=== PATIENT | female | born 1985 | race Caucasian/White ===

== ENCOUNTER 2017-01-09 14:38 | Emergency (ER) | payer BC ==
[2017-01-09 14:50] VITALS: BP 139/70; PULSE 74; RESP 20; TEMP 98.1
--- NOTE | 2017-01-09 15:17 | ED ---
Recheck HPI - General Chief Complaint: Recheck/Abnormal Lab/Rx Stated Complaint: Poss [place] Palsy. Sent from [facility] Time Seen by Provider: 01/09/17 14:59 Source: patient, RN notes reviewed Mode of arrival: ambulatory Limitations: no limitations - History of Present Illness Initial Comments: 31-year-old female presents to the emergency department with a chief complaint of left-sided facial weakness and change in sensation. Patient states yesterday she also has lower lip was informed homicidal. Patient states today she woke up and she's had decreased sensation to the cheeks and the eyes and she noticed some weakness to her left eyebrow. Patient states she went to urgent care and they directly referred her here. Patient states she's never had this before. Patient denies any headache. Patient denies any traumas or injuries. Patient states that she is not currently having any other symptoms at this timePatient denies any recent fever, chills, shortness of breath, chest pain, back pain, abdominal pain, nausea vomiting, tingling, dysuria or hematuria , constipation or diarrhea, headaches or visual changes, or any other current symptoms. - Related Data Previous Rx's Medication Instructions Recorded predniSONE 40 mg PO BID 7 Days 01/09/17 Allergies Allergy/AdvReac Type Severity Reaction Status Date / Time No Known Allergies Allergy Verified 01/09/17 14:50 Review of Systems ROS Statement: Those systems with pertinent positive or pertinent negative responses have been documented in the HPI. ROS Other: All systems not noted in ROS Statement are negative. Past Medical History Past Medical History: No Reported History History of Any Multi-Drug Resistant Organisms: None Reported Past Surgical History: Tonsillectomy Past Psychological History: No Psychological Hx Reported Smoking Status: Never smoker Past Alcohol Use History: None Reported Past Drug Use History: None Reported General Exam Limitations: no limitations General appearance: alert, in no apparent distress Head exam: Present: atraumatic, normocephalic, normal inspection Eye exam: Present: PERRL, EOMI. Absent: normal appearance (Some drooping noticed to the left eye), scleral icterus, conjunctival injection, periorbital swelling ENT exam: Present: mucous membranes moist Neck exam: Present: normal inspection. Absent: tenderness, meningismus, lymphadenopathy Respiratory exam: Present: normal lung sounds bilaterally. Absent: respiratory distress, wheezes, rales, rhonchi, stridor Cardiovascular Exam: Present: regular rate, normal rhythm, normal heart sounds. Absent: systolic murmur, diastolic murmur, rubs, gallop, clicks Neurological exam: Present: alert, oriented X3, normal gait Expanded Patient oriented to: Present: person, place, time Speech: Present: fluid speech Cranial nerves: EOM's Intact: Normal, Gag Reflex: Normal, Tongue Deviation: Normal, Facial Sensation: Abnormal Left, Facial Palsy with Forehead Movement: Abnormal Left Cerebellar function: Finger to Nose: Normal, Heel to Olsen: Normal, Romberg: Normal Upper motor neuron: Jose Neglect: Normal, Pronator Drift: Normal Sensory exam: Upper Extremity Light Touch: Normal, Upper Extremity Pin Prick: Normal, Lower Extremity Light Touch: Normal, Lower Extremity Pin Prick: Normal Motor strength exam: RUE: 5, LUE: 5, RLE: 5, LLE: 5 DTR: Patellar (R): 2+, Patellar (L): 2+ Eye Response: (4) open spontaneously Motor Response: (6) obeys commands Verbal Response: (5) oriented Psychiatric exam: Present: normal affect, normal mood Skin exam: Present: warm, dry, intact, normal color. Absent: rash Course Vital Signs 01/09/17 14:47 Temperature 98.1 F Pulse Rate 74 Respiratory 20 Rate Blood Pressure 139/70 O2 Sat by Pulse 98 Oximetry Medical Decision Making - Medical Decision Making 31-year-old female presents with a history of [place]'s palsy. This and we'll start the steroids. We discussed using an eyedrop for home to help lubricate the eye. We did discuss follow-up and return parameters. We did give her neurology referral. Patient stated that she understood and she isn't tender in the plan. All questions have answered. She will be discharged. Disposition Clinical Impression: Paris's palsy Disposition: HOME SELF-CARE Condition: Stable Instructions: [place] Palsy (ED) Additional Instructions: Please use medication as discussed. Please follow up with family doctor if symptoms have not improved over the next two days. Please return to the emergency room if your symptoms increase or worsen or for any other concerns. Prescriptions: predniSONE 40 mg PO BID 7 Days Referrals: None,Stated [Primary Care Provider] - 1-2 days Claudia Shabazz MD [STAFF PHYSICIAN] - 1-2 days Time of Disposition: 15:17
== END 2017-01-09 15:25 | disposition home or self-care (01) ==
LOC: EC 14:38
DX: G51.0 Bell's palsy (principal)
CPT/HCPCS: 99284

== ENCOUNTER 2020-02-15 08:33 | Inpatient (IN) | payer BC ==
[2020-02-15] MEDS ORDERED: AMPICILLIN 2,000 MG in SODIUM CHLORIDE 0.9% 100 ML IVPB STA (09:00)
[2020-02-15] MEDS ORDERED: OXYTOCIN 30 UNITS/500 ML NS 30 UNIT in SALINE 1 500ML.BAG IV SCH (09:00)
[2020-02-15] MEDS ORDERED: METHYLERGONOVINE 0.2 MG/ML 1 ML AMP IM PRN (09:00)
[2020-02-15] MEDS ORDERED: CARBOPROST TROMETHAMINE 250 MCG/ML 1 ML AMP IM PRN (09:00)
[2020-02-15] MEDS ORDERED: OXYTOCIN 10 UNIT/ML 1 ML VIAL IM PRN (09:00)
[2020-02-15] MEDS ORDERED: TERBUTALINE 1 MG/ML VIAL SQ PRN (09:00)
[2020-02-15] MEDS ORDERED: LIDOCAINE 0.5% (PF) 5 MG/ML (50 ML SDV) SQ PRN (09:00)
--- NOTE | 2020-02-15 09:00 | P.HPOB ---
History of Present Illness H&P Date: 02/15/20 Chief Complaint: IUP @ 40 1/7 weeks, labor This is a 34-year-old 1 para 0 at 40 and 1/sevenths weeks with an estimated due date of 02/13. Patient presents with complaints of regular painful contractions that started around 1 AM. Patient denies loss of fluid or vaginal bleeding. Patient is noted good movement throughout. Patient has been receiving routine care with myself which has been essentially uncomplicated. Review of Systems Constitutional: Denies chills, Denies fatigue, Denies fever Ears, nose, mouth and throat: Denies headache Cardiovascular: Reports leg edema Gastrointestinal: Denies constipation, Denies diarrhea, Denies nausea, Denies vomiting Genitourinary: Reports Past Medical History Past Medical History: No Reported History History of Any Multi-Drug Resistant Organisms: None Reported Past Surgical History: Tonsillectomy Past Psychological History: No Psychological Hx Reported Smoking Status: Never smoker Past Alcohol Use History: None Reported Past Drug Use History: None Reported Medications and Allergies Home Medications Medication Instructions Recorded Confirmed Type Pnv No.95/Ferrous Fum/Folic AC 1 tab PO DAILY 02/15/20 02/15/20 History [ Multivitamin Tablet] Allergies Allergy/AdvReac Type Severity Reaction Status Date / Time No Known Allergies Allergy Verified 02/15/20 08:43 Exam Osteopathic Statement: *. No significant issues noted on an osteopathic structural exam other than those noted in the History and Physical/Consult. 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 On cervical exam she is 4-5/100/-2 station bulging bag of water was noted. Assessment and Plan (1) Term Current Visit: Yes Status: Acute Code(s): Z34.90 - ENCNTR FOR SUPRVSN OF NORMAL , UNSP, UNSP TRIMESTER SNOMED Code(s): 24258451 (2) Active labor Current Visit: Yes Status: Acute Code(s): AKD0156 - SNOMED Code(s): 243371239 Plan: Patient is admitted to labor and delivery for active labor. Patient is offered epidural for analgesia which she states she will be interested in. Anesthesia will be notified. Anticipate spontaneous vaginal delivery later today.
[2020-02-15] MEDS: LACTATED RINGERS 1,000 ML IV SCH ×3 (09:05→12:31)
[2020-02-15 09:45] LABS: Basophils % (A) 0 %; Eosinophils # (A) 0.1 k/uL (0-0.7); Eosinophils % (A) 1 %; HCT 34.1 % (34.0-46.0); HGB 11.6 gm/dL (11.4-16.0); Lymphocytes # (A) 1.5 k/uL (1.0-4.8); Lymphocytes % (A) 17 %; MCH 30.3 pg (25.0-35.0); MCV 89.3 fL (80.0-100.0); Mean Platelet Volume 8.6; Monocytes # (A) 0.3 k/uL (0-1.0); Monocytes % (A) 4 %; Neutrophils # (A) 6.6 k/uL (1.3-7.7); Neutrophils % (A) 77 %; Platelet Count 213 k/uL (150-450); RBC 3.81 m/uL (3.80-5.40); RDW 14.1 % (11.5-15.5); WBC 8.6 k/uL (3.8-10.6)
[2020-02-15] MEDS ORDERED: SODIUM CHLORIDE 0.9% 100 ML BAG ONE (10:00)
[2020-02-15] MEDS ORDERED: fentaNYL (PF) 50 MCG/ML 5 ML AMP ONE (10:00)
[2020-02-15] MEDS ORDERED: ROPIVACAINE 5MG/ML 20ML VIAL ONE (10:00)
[2020-02-15] MEDS: AMPICILLIN 1,000 MG in SODIUM CHLORIDE 0.9% 50 ML IVPB SCH ×3 (14:56→21:10)
[2020-02-15] MEDS: OXYTOCIN 20 UNITS/1000 ML NS 1,000 ML IV SCH ×2 (15:33→20:33)
[2020-02-15] MEDS ORDERED: ZOLPIDEM 5 MG TAB PO PRN (15:52)
[2020-02-15] MEDS ORDERED: SIMETHICONE 80 MG CHEWABLE PO PRN (15:52)
[2020-02-15] MEDS ORDERED: HYDROCORTISONE 2.5% RECTAL CREAM 30 GM TUBE RECTAL PRN (15:52)
[2020-02-15] MEDS ORDERED: diphenhydrAMINE 50 MG CAP PO PRN (15:52)
[2020-02-15] MEDS ORDERED: BENZOCAINE/MENTHOL SPRAY 1 GM/SPRAY AEROSOL TOPICAL PRN (15:52)
[2020-02-15] MEDS ORDERED: LANOLIN CREAM 5 GM TUBE TOPICAL PRN (15:52)
[2020-02-15] MEDS ORDERED: HYDROcodone/APAP 5-325MG 1 EACH TAB PO PRN (15:52)
[2020-02-15] MEDS ORDERED: WITCH HAZEL 1 EACH MED..PAD TOPICAL PRN (15:52)
[2020-02-15] MEDS ORDERED: diphenhydrAMINE 25 MG CAP PO PRN (15:52)
[2020-02-15] MEDS ORDERED: ACETAMINOPHEN TAB 325 MG TAB PO PRN (15:52)
[2020-02-15] MEDS ORDERED: diphenhydrAMINE 50 MG/ML 1 ML VIAL IVP PRN ×2 (15:52)
--- NOTE | 2020-02-15 15:57 | P.PROBDLV ---
Vaginal Delivery Note - . Vaginal Delivery Note: This is a pleasant 34-year-old 1 para 0 that presented to labor and delivery with complaints of regular painful contractions. Patient was noted to be 4-5 cm with a bulging bag of water. Patient was admitted to labor and delivery soon afterwards patient requested epidural placement anesthesia was notified and epidural was placed without difficulty. Patient underwent amniotomy and clear fluid was obtained. Patient was then noted to have significant spacing of her contractions therefore Pitocin augmentation of labor was begun. Patient progressed through labor eventually becoming complete she began pushing and had a normal spontaneous vaginal delivery of a viable female at 1527, weight of 7 lbs. 11 oz. with Apgars of 8 and 9 at one and 5 minutes respectively. After two-minute delayed the umbo cord was doubly clamped and cut and the placenta was delivered spontaneous intact with three-vessel cord being noted. The uterus was noted to be firm and below the umbilicus at this time. On inspection the patient's vaginal vault bilateral periurethral lacerations were noted and found to be hemostatic. A second-degree midline vaginal laceration was noted and this was repaired in the usual fashion with 3-0 Rapide. Prior to the repair lidocaine was instilled instilled into the laceration for anesthesia. A rectal exam was performed after repair was complete and found to be normal in nature. Estimated blood loss for this delivery 200 mL, all counts were noted to be correct 2 at the end of the delivery. patient and infant tolerated delivery well and are resting comfortably
[2020-02-15] MEDS: IBUPROFEN 600 MG TAB PO PRN (20:29)
[2020-02-15] MEDS: SENNOSIDES-DOCUSATE SODIUM 1 EACH TAB PO SCH (21:48)
--- NOTE | 2020-02-16 06:03 | P.DS ---
Providers Date of admission: 02/15/20 08:44 Expected date of discharge: 02/16/20 Attending physician: Laurence Mackey Primary care physician: Stated None - Discharge Diagnosis(es) (1) Term Current Visit: Yes Status: Acute (2) Active labor Current Visit: Yes Status: Acute (3) Status post vaginal delivery Current Visit: Yes Status: Acute (4) Obstetric vaginal laceration Current Visit: Yes Status: Acute Hospital Course: This is a pleasant 34-year-old 1 now para 1 that presented to labor and delivery yesterday morning 02/14 with complaints of regular painful contractions since 1 AM. Patient was noted to be dia every 4 minutes, on physical exam cervix is noted to be 4-5 cm. Patient had been receiving routine care with myself and was noted to be 40 weeks and 1 day. Patient was admitted to labor and delivery antibiotics were started for her group beta strep prophylaxis. Patient progressed through labor eventually becoming uncomfortable and requesting epidural placement epidural was placed by the anesthesia Department without difficulty. Patient underwent amniotomy clear fluid was obtained. Patient progressed to complete began pushing and had normal spontaneous vaginal delivery of a viable female weight of 7 lbs. 11 oz. with Apgars of 8 and 9 at one and 5 minutes respectively. Patient has done well . She is a bleeding and voiding without difficulty. Her lochia is moderate. She is breast-feeding. She states her pain is well-controlled and would like discharge home at 24 hours. Patient Condition at Discharge: Good Plan - Discharge Summary New Discharge Prescriptions: No Action Pnv No.95/Ferrous Fum/Folic AC [ Multivitamin Tablet] 1 tab PO DAILY Discharge Medication List Pnv No.95/Ferrous Fum/Folic AC [ Multivitamin Tablet] 1 tab PO DAILY 02/15/20 [History] Follow up Appointment(s)/Referral(s): Laurence Mackey DO [Doctor of Osteopathic Medicine] - 4 Weeks Patient Instructions/Handouts: Vaginal Delivery (DC), Vaginal Delivery (GEN) Discharge Disposition: HOME SELF-CARE
[2020-02-16] MEDS ORDERED: PRENATAL VIT-IRON-FOLIC ACID 1 EACH CAP PO SCH (09:00)
[2020-02-16] MEDS: IBUPROFEN 600 MG TAB PO PRN (09:25)
[2020-02-16] MEDS: SENNOSIDES-DOCUSATE SODIUM 1 EACH TAB PO SCH (09:27)
[2020-02-16 10:29] VITALS: RESP 14
[2020-02-16 13:40] VITALS: BP 104/67; PULSE 77; TEMP 97.9
== END 2020-02-16 16:39 | disposition home or self-care (01) | DRG 807 ==
LOC: FBPOP 08:33 → 4FBP 08:44
PROVIDERS: ADMIT Obstetrics & Gynecology Obstetrics; ATTEND Obstetrics & Gynecology Obstetrics
PROC: 10E0XZZ Delivery of Products of Conception, External Approach (ICD-10-PCS; principal; 2020-02-15)
PROC: 3E0R3BZ Introduction of Anesthetic Agent into Spinal Canal, Percutaneous Approach (ICD-10-PCS; principal; 2020-02-15)
PROC: 00HU33Z Insertion of Infusion Device into Spinal Canal, Percutaneous Approach (ICD-10-PCS; principal; 2020-02-15)
DX: O70.1 Second degree perineal laceration during delivery (principal); Z37.0 Single live birth; Z3A.40 40 weeks gestation of pregnancy; Z90.89 Acquired absence of other organs
CPT/HCPCS: 59025; 85025; 86850; 86900; 86901; 99213

== ENCOUNTER 2021-08-21 10:28 | Emergency (ER) | payer BC ==
--- NOTE | 2021-08-21 11:37 | ED ---
URI HPI - General Chief Complaint: Upper Respiratory Infection Stated Complaint: Covid+/BAM, 6wks preg Time Seen by Provider: 08/21/21 11:23 Source: patient, RN notes reviewed Mode of arrival: ambulatory Limitations: no limitations - History of Present Illness Initial Comments: Patient is a 36-year-old female that presents to the emergency department co mplaining of being Covid positive and having symptoms for the past 1-2 days. She notes she is approximately 6 weeks and would like to get monoclonal antibodies. She was otherwise well-appearing. She denied any other symptoms or complaints. She denied chest pain shortness of breath headache nausea vomiting diarrhea constipation fever fatigue chills. - Related Data Home Medications Medication Instructions Recorded Confirmed Pnv No.95/Ferrous Fum/Folic AC 1 tab PO DAILY 02/15/20 02/15/20 [ Multivitamin Tablet] Allergies Allergy/AdvReac Type Severity Reaction Status Date / Time No Known Allergies Allergy Verified 02/15/20 08:43 Review of Systems ROS Statement: Those systems with pertinent positive or pertinent negative responses have been documented in the HPI. ROS Other: All systems not noted in ROS Statement are negative. Past Medical History Past Medical History: No Reported History Additional Past Medical History / Comment(s): so [facility] 3 yrs ago History of Any Multi-Drug Resistant Organisms: None Reported Past Surgical History: Adenoidectomy, Tonsillectomy Past Anesthesia/Blood Transfusion Reactions: No Reported Reaction Past Psychological History: ADD/ADHD Smoking Status: Never smoker Past Alcohol Use History: None Reported Past Drug Use History: None Reported - Past Family History Mother Family Medical History: No Reported History General Exam Limitations: no limitations General appearance: alert, in no apparent distress Head exam: Present: atraumatic, normocephalic, normal inspection Eye exam: Present: normal appearance, PERRL, EOMI. Absent: scleral icterus, conjunctival injection, periorbital swelling ENT exam: Present: normal exam, mucous membranes moist Neck exam: Present: normal inspection Respiratory exam: Present: normal lung sounds bilaterally. Absent: respiratory distress, wheezes, rales, rhonchi, stridor Cardiovascular Exam: Present: regular rate, normal rhythm, normal heart sounds. Absent: systolic murmur, diastolic murmur, rubs, gallop, clicks GI/Abdominal exam: Present: soft, normal bowel sounds. Absent: distended, tenderness, guarding, rebound, rigid Extremities exam: Present: normal inspection, full ROM, normal capillary refill. Absent: tenderness, pedal edema, joint swelling, calf tenderness Neurological exam: Present: alert, oriented X3 Psychiatric exam: Present: normal affect, normal mood Skin exam: Present: warm, dry, intact, normal color. Absent: rash Course Vital Signs 08/21/21 11:11 Temperature 98.2 F Pulse Rate 99 Respiratory 19 Rate Blood Pressure 95/58 O2 Sat by Pulse 100 Oximetry Medical Decision Making - Medical Decision Making 36-year-old female Covid-positive for the past several days on it to undergo monoclonal antibody infusion. Patient did bring her Covid test with her a copy will be uploaded to her file. Patient does meet criteria for monoclonal antibodies She is agreeable to discharge home after. Case discussed with Dr. Ardon. Disposition Clinical Impression: COVID Disposition: HOME SELF-CARE Condition: Stable Instructions (If sedation given, give patient instructions): Coronavirus Disease 2019 (COVID-19) Additional Instructions: Please return to the Emergency Department if symptoms worsen or any other concerns. Is patient prescribed a controlled substance at d/c from ED?: No Referrals: None,Stated [Primary Care Provider] - 1-2 days Time of Disposition: 11:37
[2021-08-21] MEDS ORDERED: SODIUM CHLORIDE 0.9% 50 ML IVPB ONE (11:45)
[2021-08-21] MEDS ORDERED: BAMLANIVIMAB (EUA) 700 MG, ETESEVIMAB (EUA) 1,400 MG in SODIUM CHLORIDE 0.9% 50 ML IVPB ONE (11:45)
[2021-08-21 12:32] VITALS: RESP 16
[2021-08-21 14:00] VITALS: BP 102/64; PULSE 80; TEMP 98.3
== END 2021-08-21 14:00 | disposition home or self-care (01) ==
LOC: EC 10:28
DX: O98.511 Other viral diseases complicating pregnancy, first trimester (principal); U07.1 COVID-19; Z3A.01 Less than 8 weeks gestation of pregnancy
CPT/HCPCS: 99283; M0245

== ENCOUNTER 2021-10-17 09:59 | Emergency (ER) | payer BC ==
[2021-10-17 10:07] VITALS: RESP 18; TEMP 98.5
[2021-10-17] MEDS ORDERED: SODIUM CHLORIDE 0.9% 1,000 ML IV STA ×3 (11:36→15:38)
[2021-10-17] MEDS ORDERED: FAMOTIDINE 20 MG/2 ML VIAL IV STA (11:36)
[2021-10-17] MEDS ORDERED: ONDANSETRON 4 MG/2 ML VIAL IVP STA (11:36)
--- NOTE | 2021-10-17 11:40 | ED ---
General Adult HPI - General Chief complaint: Fall Stated complaint: 15wks preg/Fall/Vomiting Time Seen by Provider: 10/17/21 11:21 Source: patient, family, RN notes reviewed Mode of arrival: ambulatory Limitations: no limitations - History of Present Illness Initial comments: Patient is a pleasant 36-year-old female presenting to the emergency department with vomiting. Patient has been vomiting since last night, approximately 4 episodes. Patient may have had one episode of mild loose stools. Patient did have one episode when she was running to the bathroom when she fell. Patient did admission for teeth during this. Unclear if she may have passed out or not however patient did vomit. No abdominal pain. Patient is 15 weeks gravid. No pelvic pain. No vaginal bleeding. - Related Data Home Medications Medication Instructions Recorded Confirmed Pnv No.95/Ferrous Fum/Folic AC 1 tab PO DAILY 02/15/20 10/17/21 [ Multivitamin Tablet] Aspirin EC [Ecotrin Low Dose] 81 mg PO DAILY 10/17/21 10/17/21 Allergies Allergy/AdvReac Type Severity Reaction Status Date / Time No Known Allergies Allergy Verified 10/17/21 12:32 Review of Systems ROS Statement: Those systems with pertinent positive or pertinent negative responses have been documented in the HPI. ROS Other: All systems not noted in ROS Statement are negative. Constitutional: Denies: fever Eyes: Denies: eye pain ENT: Reports: dental pain. Denies: ear pain Respiratory: Denies: cough Cardiovascular: Denies: chest pain Endocrine: Denies: fatigue Gastrointestinal: Denies: abdominal pain Genitourinary: Denies: dysuria Musculoskeletal: Denies: back pain Skin: Denies: rash Neurological: Denies: weakness Past Medical History Past Medical History: No Reported History Additional Past Medical History / Comment(s): [place] 3 yrs ago History of Any Multi-Drug Resistant Organisms: None Reported Past Surgical History: Adenoidectomy, Tonsillectomy Past Anesthesia/Blood Transfusion Reactions: No Reported Reaction Past Psychological History: ADD/ADHD Smoking Status: Never smoker Past Alcohol Use History: None Reported Past Drug Use History: None Reported - Past Family History Mother Family Medical History: No Reported History General Exam Limitations: no limitations General appearance: alert, in no apparent distress Head exam: Present: atraumatic, normocephalic Eye exam: Present: normal appearance, PERRL, EOMI Expanded Teeth exam: Present: fractured tooth # (Patient does have partial fractures, up to 30% of the right central incisor, left central incisor, left lateral incisor, and left canine all upper.) Neck exam: Present: normal inspection. Absent: tenderness Respiratory exam: Present: normal lung sounds bilaterally Cardiovascular Exam: Present: regular rate, normal rhythm GI/Abdominal exam: Present: soft, distended (Mild fullness suprapubic region consistent with gravid history. Nontender.). Absent: tenderness, guarding, rebound, rigid, pulsatile mass Extremities exam: Present: normal inspection Neurological exam: Present: alert, oriented X3, CN II-XII intact. Absent: motor sensory deficit Psychiatric exam: Present: normal affect, normal mood Skin exam: Present: normal color Course Vital Signs 10/17/21 10:04 Temperature 98.5 F Pulse Rate 55 L Respiratory 18 Rate Blood Pressure 100/60 O2 Sat by Pulse 100 Oximetry - Reevaluation(s) Reevaluation #1: 10/17/21 11:40 Patient does have a dentist in the family and is going there after her visit today. Medical Decision Making - Medical Decision Making Patient reevaluated and resting comfortably in bed. Patient is feeling better and comfortable with discharge home. Patient does plan on going to the dentist. Patient and family updated. - Lab Data Result diagrams: 10/17/21 11:51 10/17/21 11:51 Lab Results 10/17/21 10/17/21 10/17/21 Range/Units 11:51 11:51 11:51 WBC 8.1 (3.8-10.6) k/uL RBC 4.37 (3.80-5.40) m/uL Hgb 13.6 (11.4-16.0) gm/dL Hct 39.4 (34.0-46.0) % MCV 90.1 (80.0-100.0) fL MCH 31.2 (25.0-35.0) pg MCHC 34.6 (31.0-37.0) g/dL RDW 14.1 (11.5-15.5) % Plt Count 191 (150-450) k/uL MPV 7.5 Neutrophils % 93 % Lymphocytes % 5 % Monocytes % 1 % Eosinophils % 1 % Basophils % 0 % Neutrophils # 7.5 (1.3-7.7) k/uL Lymphocytes # 0.4 L (1.0-4.8) k/uL Monocytes # 0.1 (0-1.0) k/uL Eosinophils # 0.1 (0-0.7) k/uL Basophils # 0.0 (0-0.2) k/uL PT 9.6 (9.0-12.0) sec INR 0.9 (<1.2) APTT 22.6 (22.0-30.0) sec Sodium 133 L (137-145) mmol/L Potassium 4.0 (3.5-5.1) mmol/L Chloride 105 (98-107) mmol/L Carbon Dioxide 21 L (22-30) mmol/L Anion Gap 7 mmol/L BUN 10 (7-17) mg/dL Creatinine 0.49 L (0.52-1.04) mg/dL Est GFR (CKD-EPI)AfAm >90 (>60 ml/min/1.73 sqM) Est GFR (CKD-EPI)NonAf >90 (>60 ml/min/1.73 sqM) Glucose 109 H (74-99) mg/dL Calcium 9.1 (8.4-10.2) mg/dL Total Bilirubin 0.8 (0.2-1.3) mg/dL AST 23 (14-36) U/L ALT 15 (4-34) U/L Alkaline Phosphatase 40 (38-126) U/L Total Protein 7.2 (6.3-8.2) g/dL Albumin 3.9 (3.5-5.0) g/dL Amylase 57 (30-110) U/L Lipase 46 (23-300) U/L HCG, Quant 72396.0 mIU/mL - Radiology Data Radiology results: report reviewed (IUP 16 weeks 2 days. Heart rate 149) Disposition Clinical Impression: Fall, Intrauterine , Dental injury, Vomiting Disposition: HOME SELF-CARE Condition: Stable Instructions (If sedation given, give patient instructions): Nausea and Vomiting in (ED) Additional Instructions: Please follow-up with primary care physician in the next day or 2 for recheck. Please do follow-up with your CARDIAC EXERCISE SPECIALIST in the next couple days for recheck also. Please follow-up with dentist today as planned. Return for not tolerating fluids, fevers, pelvic or abdominal pain, worsening or changing symptoms or other concerns. Is patient prescribed a controlled substance at d/c from ED?: No Referrals: Laurence Mackey DO [Primary Care Provider] - 1-2 days Ajit Flores MD [STAFF PHYSICIAN] - 1-2 days Time of Disposition: 13:22
[2021-10-17 11:58] LABS: Basophils % (A) 0 %; Eosinophils # (A) 0.1 k/uL (0-0.7); Eosinophils % (A) 1 %; HCT 39.4 % (34.0-46.0); HGB 13.6 gm/dL (11.4-16.0); Lymphocytes # (A) 0.4 k/uL (1.0-4.8); Lymphocytes % (A) 5 %; MCH 31.2 pg (25.0-35.0); MCHC 34.6 g/dL (31.0-37.0); MCV 90.1 fL (80.0-100.0); Mean Platelet Volume 7.5; Monocytes # (A) 0.1 k/uL (0-1.0); Monocytes % (A) 1 %; Neutrophils # (A) 7.5 k/uL (1.3-7.7); Neutrophils % (A) 93 %; Platelet Count 191 k/uL (150-450); RBC 4.37 m/uL (3.80-5.40); RDW 14.1 % (11.5-15.5); WBC 8.1 k/uL (3.8-10.6)
[2021-10-17 12:07] LABS: INR 0.9 (<1.2); Partial Thromboplastin Time 22.6 sec (22.0-30.0); Prothrombin Time 9.6 sec (9.0-12.0)
[2021-10-17 12:20] LABS: ALT 15 U/L (4-34); AST 23 U/L (14-36); African American GFR (CKD) >90 (>60 ml/min/1.73 sqM); Albumin 3.9 g/dL (3.5-5.0); Alkaline Phosphatase 40 U/L (38-126); Amylase 57 U/L (30-110); Anion Gap 7 mmol/L; Blood Urea Nitrogen 10 mg/dL (7-17); Calcium 9.1 mg/dL (8.4-10.2); Carbon Dioxide 21 mmol/L (22-30); Chloride 105 mmol/L (98-107); Glucose 109 mg/dL (74-99); Lipase 46 U/L (23-300); Non-African American GFR(CKD) >90 (>60 ml/min/1.73 sqM); Sodium 133 mmol/L (137-145); Total Bilirubin 0.8 mg/dL (0.2-1.3); Total Protein 7.2 g/dL (6.3-8.2)
--- NOTE | 2021-10-17 13:04 | US ---
EXAMINATION TYPE: US OB >= 14 wk fetus DATE OF EXAM: 10/17/2021 COMPARISON: None CLINICAL HISTORY: 15 weeks, fall, pt vomited all night and fell this am, has sore stomach, no bleedin g TECHNIQUE: OBTA GESTATIONAL AGE / DATING Physician Established: (15 weeks/4 days) EDC: 04/06/2022 Dates by LMP: LMP unknown Dates by First Scan: No previous this is first scan Dates by Current Scan: (16 weeks/2 days) EDC: 04/01/2022 SURVEY IUP: Single PLACENTA: Fundal PREVIA: No Previa ARDEN: 13.8 cm CERVICAL LENGTH (transabdominal: norm > 3.0cm): 3.0 cm BIOMETRY PRESENTATION: Variable BPD: 3.4 cm 16 weeks / 3 days HC: 12.1 cm 16 weeks / 0 days AC: 10.5 cm 16 weeks / 3 days FL: 2.0 cm 16 weeks / 0 days ESTIMATED WEIGHT IN GRAMS: 148.7 grams ESTIMATED WEIGHT IN LBS/OZ: 0 lbs. 5 oz. WEIGHT PERCENTAGE BASED ON ESTABLISHED DATES: 82% HC/AC: 1.1 Normal FL/AC: 19.1 Normal HEART RATE: 149 bpm RHYTHM: Renetta IMPRESSION: Single intrauterine gestation estimated at 16 weeks 2 days gestation based on current ultrasound samir urements. Cardiac activity measures 149 bpm.
[2021-10-17 16:28] VITALS: BP 102/84; PULSE 100
== END 2021-10-17 16:44 | disposition home or self-care (01) ==
LOC: EC 09:59
DX: O9A.212 Injury, poisoning and certain other consequences of external causes complicating pregnancy, second trimester (principal); S00.502A Unspecified superficial injury of oral cavity, initial encounter; O21.9 Vomiting of pregnancy, unspecified; Z3A.16 16 weeks gestation of pregnancy; W19.XXXA Unspecified fall, initial encounter
CPT/HCPCS: 36415; 80053; 82150; 83690; 85025; 85610; 85730; 84702; 76805; 99284; 96374; 96375; 96361 ×3; J2405

== ENCOUNTER → 2022-01-26 | Outpatient (CLI) | payer BC ==
--- NOTE | 2022-03-03 09:58 | HM ---
24 to monitor shows sinus mechanism heart rates ranged from 67-133 beats a minute or rigidity 7 beats a minute Nonsustained episodes of atrial tachycardia with negative P waves Recurrent nonsustained episodes of the same negatively oriented PVI morphology No sustained SVT Impression Nonsustained atrial tachycardia, recurrent MTDD
== END | disposition home or self-care (01) ==
LOC: RADECHMAIN 07:36
PROVIDERS: ATTEND Obstetrics & Gynecology Obstetrics
DX: I47.1 Supraventricular tachycardia (principal)
CPT/HCPCS: 93225; 93226

== ENCOUNTER 2022-03-30 06:03 | Inpatient (IN) | payer BC ==
[2022-03-30] MEDS ORDERED: METHYLERGONOVINE 0.2 MG/ML 1 ML AMP IM PRN (06:11)
[2022-03-30] MEDS ORDERED: LIDOCAINE 0.5% (PF) 5 MG/ML (50 ML SDV) SQ PRN (06:11)
[2022-03-30] MEDS ORDERED: OXYTOCIN 10 UNIT/ML 1 ML VIAL IM PRN (06:11)
[2022-03-30] MEDS ORDERED: CARBOPROST TROMETHAMINE 250 MCG/ML 1 ML AMP IM PRN (06:11)
[2022-03-30] MEDS ORDERED: TERBUTALINE 1 MG/ML VIAL SQ PRN (06:11)
[2022-03-30] MEDS ORDERED: OXYTOCIN 30 UNITS/500 ML NS 30 UNIT in SALINE 1 500ML.BAG IV SCH ×2 (06:15→14:30)
[2022-03-30] MEDS: LACTATED RINGERS 1,000 ML IV SCH ×3 (06:44→14:00)
[2022-03-30 07:17] LABS: Basophils % (A) 0 %; Eosinophils # (A) 0.1 k/uL (0-0.7); Eosinophils % (A) 1 %; HCT 36.2 % (34.0-46.0); HGB 11.9 gm/dL (11.4-16.0); Lymphocytes # (A) 1.7 k/uL (1.0-4.8); Lymphocytes % (A) 24 %; MCH 29.9 pg (25.0-35.0); MCHC 32.8 g/dL (31.0-37.0); MCV 91.1 fL (80.0-100.0); Mean Platelet Volume 8.3; Monocytes # (A) 0.3 k/uL (0-1.0); Monocytes % (A) 5 %; Neutrophils # (A) 4.9 k/uL (1.3-7.7); Neutrophils % (A) 69 %; Platelet Count 194 k/uL (150-450); RBC 3.97 m/uL (3.80-5.40); RDW 14.5 % (11.5-15.5); WBC 7.1 k/uL (3.8-10.6)
[2022-03-30] MEDS ORDERED: fentaNYL (PF) 50 MCG/ML 5 ML AMP ONE (10:37)
[2022-03-30] MEDS ORDERED: SODIUM CHLORIDE 0.9% 100 ML BAG ONE (10:37)
[2022-03-30] MEDS ORDERED: BUPIVACAINE (PF) 0.25% 30 ML VIAL ONE (10:37)
[2022-03-30] MEDS ORDERED: LANOLIN CREAM 5 GM TUBE TOPICAL PRN (14:23)
[2022-03-30] MEDS ORDERED: SIMETHICONE 80 MG CHEWABLE PO PRN (14:23)
[2022-03-30] MEDS ORDERED: ZOLPIDEM 5 MG TAB PO PRN (14:23)
[2022-03-30] MEDS ORDERED: diphenhydrAMINE 50 MG/ML 1 ML VIAL IVP PRN ×2 (14:23)
[2022-03-30] MEDS ORDERED: ACETAMINOPHEN TAB 325 MG TAB PO PRN (14:23)
[2022-03-30] MEDS ORDERED: diphenhydrAMINE 25 MG CAP PO PRN (14:23)
[2022-03-30] MEDS ORDERED: diphenhydrAMINE 50 MG CAP PO PRN (14:23)
[2022-03-30] MEDS ORDERED: BENZOCAINE/MENTHOL SPRAY 1 GM/SPRAY AEROSOL TOPICAL PRN (14:23)
[2022-03-30] MEDS ORDERED: HYDROCORTISONE 2.5% RECTAL CREAM 30 GM TUBE RECTAL PRN (14:23)
--- NOTE | 2022-03-30 14:41 | P.PROBDLV ---
Vaginal Delivery Note - . Vaginal Delivery Note: This is a 36-year-old 2 para 1 presented to labor and delivery this morning for scheduled induction of labor. She has had an essentially uncomplicated with the exception of significant nausea and vomitting. She did have 2 episodes of syncope during the 1 where she hit her upper lip on the toilet while rushing to vomit, she says really lost 2 of her front teeth during the process. Patient did have a COVID-19 infection during the . Patient has undergone testing which has been normal. Patient was admitted to labor and delivery and Pitocin induction of labor was begun. Patient underwent amniotomy and clear fluid was obtained. Patient progressed through labor eventually becoming uncomfortable and requesting epidural placement. Epidural was placed without difficulty by the anesthesia department. Patient progressed to 7 cm when she had noted sensation of increased nausea and was noted to have drooling stiffness and loss of consciousness. Patient was noted to be unresponsive for partially 1 minute with a lower blood pressure, hypertension noted. Patient did become responsive with no mental fogginess noted. Patient was then noted to be complete. Patient was placed in a modified lithotomy position and with excellent maternal effort had a normal spontaneous vaginal delivery of a viable female at 1339, weight of 614, Apgars of 8 and 9 at one and 5 minutes respectively. After two-minute delayed the umbo cord was doubly clamped and cut and the was handed to the maternal abdomen, spontaneous cry was noted. The placenta was delivered spontaneously intact with a three-vessel cord being noted. The uterus was noted to be firm and below the umbilicus. On inspection the patient's vaginal vault a first-degree vaginal laceration was appreciated and repaired in the usual fashion with 3-0 Rapide after instillation with lidocaine. The bladder was then drained for approximately 200 mL of clear yellow urine. Estimated blood loss 100 mL Patient and tolerated delivery well and are resting comfortably. Addendum: While patient was in the recovery. Patient had another episode of hypotension with loss of consciousness seconds in nature once again no mental fogginess was appreciated. Pulse was noted to be normal. The A team was called to evaluate patient. Please see consult note for recommendations.
--- NOTE | 2022-03-30 14:47 | P.HPOB ---
History of Present Illness H&P Date: 03/30/22 Chief Complaint: IUP @ 39 0/7 weeks This is a 36-year-old at 39-0/7 weeks that presents to labor and delivery for induction of labor. Patient has been receiving routine care. Patient did contract covid during the and has had testing since 32 weeks. Patient does note good movement denies vaginal bleeding or loss of fluid. She did have 2 episodes of syncope, though to be vasovagal as she noted nausea prior to episode of syncope. She stated she had feeling of nausea got up to portillo to the bathroom fell forward hitting the base of the toilet. Patient was taken to the emergency department at that time in addition. Patient had 1 other episode similar to this during the where she had loss of consciousness but her helped her to the ground. Otherwise patient has been well during the . Patient has undergone into needle testing secondary to above which has been normal, growth has been normal On bloodwork this patient is a blood type of A-, rubella status nonimmune, hep Angelique surface antigen negative, HIV negative, RPR is nonreactive, group beta strep cultures negative Review of Systems Constitutional: Denies chills, Denies fatigue, Denies fever Ears, nose, mouth and throat: Denies headache Cardiovascular: Reports edema Respiratory: Denies dyspnea Gastrointestinal: Denies constipation, Denies diarrhea, Denies nausea, Denies vomiting Genitourinary: Reports Past Medical History Past Medical History: No Reported History Additional Past Medical History / Comment(s): so peraza 3 yrs ago History of Any Multi-Drug Resistant Organisms: None Reported Past Surgical History: Adenoidectomy, Tonsillectomy Past Anesthesia/Blood Transfusion Reactions: No Reported Reaction Past Psychological History: ADD/ADHD Smoking Status: Never smoker Past Alcohol Use History: None Reported Past Drug Use History: None Reported - Past Family History Mother Family Medical History: No Reported History Medications and Allergies Home Medications Medication Instructions Recorded Confirmed Type Pnv No.95/Ferrous Fum/Folic AC 1 tab PO DAILY 02/15/20 03/30/22 History [ Multivitamin Tablet] Aspirin EC [Ecotrin Low Dose] 81 mg PO DAILY 10/17/21 03/30/22 History Allergies Allergy/AdvReac Type Severity Reaction Status Date / Time No Known Allergies Allergy Verified 03/30/22 06:09 Exam Osteopathic Statement: *. No significant issues noted on an osteopathic structural exam other than those noted in the History and Physical/Consult. 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 Patient is admitted to labor and delivery and Pitocin induction of labor is begun. Options for analgesia are discussed with patient including epidural and Stadol. Patient will consider. Anticipate spontaneous vaginal delivery later today.
--- NOTE | 2022-03-30 15:14 | P.CONS ---
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 She did have 2 episodes of loss of consciousness presented to the hospital. The initial one was during induction. She had low blood pressure, became unresponsive for approximately 1 minute. Afterwards she was a little bit foggy and had a hard time coming to. Nursing noted that she had frothing/drooling and increased tone with her arms in a flexed position. She then had an uneventful vaginal delivery. In the postdelivery. She again had an additional episode l asting less than 1 minute. It is difficult to determine whether she had loss of bladder control due to being post delivery. There are no signs of tongue biting. Nicki and her reports that she had 2 additional episodes during her somewhat depressed. One while she was in the bathroom and felt nauseated. She did fall and hit her face resulting in the loss of 2 teeth. She had one other additional episode where her helped her to the ground. She denies any history of prior seizures. She denies any history of prior syncopal episodes. She is unsure of her family history she was adopted. She does not believe from the information she had that there was a history of seizures, she does believe that there is a history of heart disease on her mother's side. Pertinent positives and negatives as discussed in HPI, a complete review of systems was performed and all other systems are negative. Vital signs reviewed General: nontoxic, no distress, appears at stated age Derm: warm, dry Head: atraumatic, normocephalic, symmetric Eyes: EOMI, no lid lag, anicteric sclera, pupils equal round reactive to light ENT: Nose and ears atraumatic, no thrush, no pharyngeal erythema Neck: No thyromegaly, no cervical lymphadenopathy, trachea midline, supple Mouth: no lip lesion, mucus membranes moist Cardiovascular: S1S2 reg, no murmur, positive posterior tibial pulse bilateral, no edema, capillary refill less than 2 seconds Lungs: clear to auscultation bilateral, no rhonchi, no rales, no wheeze, no accessory muscle use Abdominal: soft, nontender to palpation, no guarding, no appreciable organomegaly, normal bowel sounds Ext: no gross muscle atrophy, muscle strength muscle strength 5 out of 5 in bilateral upper extremities, plantar and dosing flexion intact bilateral and equal (appears appropriate due to epidural), Babinskis equivocal bilaterally likely secondary to epidural, no tongue biting. Neuro: CN II-XII grossly intact (Possible minimal tongue deviation to the left), light touch intact all 4 extremities, finger to nose within normal limits, Psych: Alert, oriented, appropriate affect Assessment/Plan: Unresponsive episode -Syncope versus less likely seizure -EKG- NSR at [address]-T wave changes, normal interval and normal axis. - check Echocardiogram -Once epidural has worn off patient will need orthostatic vital signs -Case discussed with neurology who will evaluate the patient today -Check CT head -Case discussed with Dr. Mackey - check electrolytes - prolactin level and lactic acid would not be useful in this situation due to recent vaginal delivery. Relative hypotension - appears improved at this time - s/p 3L of IV fluids Vaginal Delivery - being managed by [employer] WORKER Thank you for allowing us to participate in the care of this pleasant patient. Do not hesitate to contact us with questions. Someone can be reached from the [facility] hospitalist group all hours of the day at [phone] or via [employer]. Past Medical History Additional Past Medical History / Comment(s): bells clotildeey 3 yrs ago History of Any Multi-Drug Resistant Organisms: None Reported Past Surgical History: Adenoidectomy, Tonsillectomy Past Anesthesia/Blood Transfusion Reactions: No Reported Reaction Past Psychological History: ADD/ADHD Smoking Status: Never smoker Past Alcohol Use History: None Reported Past Drug Use History: None Reported - Past Family History Mother History Unknown: Yes Additional Family Medical History / Comment(s): adopted, thinks there may be a hx of heart disease Medications and Allergies Home Medications Medication Instructions Recorded Confirmed Type Pnv No.95/Ferrous Fum/Folic AC 1 tab PO DAILY 02/15/20 03/30/22 History [ Multivitamin Tablet] Aspirin EC [Ecotrin Low Dose] 81 mg PO DAILY 10/17/21 03/30/22 History Allergies Allergy/AdvReac Type Severity Reaction Status Date / Time No Known Allergies Allergy Verified 07/25/22 06:09 Physical Exam Osteopathic Statement: *. No significant issues noted on an osteopathic structural exam other than those noted in the History and Physical/Consult. Vitals: Vital Signs Temp Pulse Resp BP Pulse Ox 03/30/22 14:40 98 F 71 18 98/54 100 03/30/22 14:25 74 18 103/57 100 03/30/22 14:10 72 18 96/59 100 03/30/22 13:55 87 18 101/55 99 03/30/22 06:09 97 F L 82 18 113/67 97 Intake and Output 03/30/22 03/30/22 03/30/22 06:59 14:59 22:59 Output Total 100 Balance -100 Output: Estimated Blood Loss 100 Other: # Voids 1 Weight 88.451 kg Results CBC & Chem 7: 03/30/22 06:47
--- NOTE | 2022-03-30 15:43 | P.EN ---
A- team: Indication: episode of unresponsiveness Arrived on Scene to find: Patient awake and alert Patient had a vaginal delivery about 1 hour prior. She had an episode of unresponsivenss with drooling and spacitiy that lasted approximately. She again had a episode after delivery lasting less than 1 minutes. Unable to assess loss of bladder due to recent delivery. No tongue biting. No prolonged episode of confusion. She does have an aura of some nausea and just feeling off. Per patient and her she had 2 additional episodes during (see my consult for more details.) Vital signs reviewed General: nontoxic, no distress, appears at stated age Derm: warm, dry Head: atraumatic, normocephalic, symmetric Eyes: EOMI, no lid lag, anicteric sclera Mouth: no lip lesion, mucus membranes moist Cardiovascular: S1S2 reg, no murmur, positive posterior tibial pulse bilateral, Lungs: CTA bilateral, no rhonchi, no rales , no accessory muscle use Abdominal: soft, nontender to palpation, no guarding, no appreciable organomegaly Ext: no gross muscle atrophy, no edema, no contractures Neuro: CN II-XI grossly intact, muscles strength 5/5in b/l UE and intact plantar and dorisfelxion in both legs (appears appropraite for epidural) Psych: Alert, oriented, anxious and tearful Assessment/Plan: unresponisve episode - seizure vs syncope - ekg, echo - consult neuro, case discussed with Dr. Maurer - check CT Head - suspect more likely vasovagal suyncope as BP was 68/40 to 75/45 just prior to episode.Has received 2L of fluid and is getting one more liter now. - orthostatics once epidural worn off. Disposition: Patient to remain on FBP. Neuro consult placed A Total of 45 minutes of critical care time was spent on the complex care of this patient.
[2022-03-30 16:10] LABS: African American GFR (CKD) >90 (>60 ml/min/1.73 sqM); Anion Gap 4 mmol/L; Blood Urea Nitrogen 7 mg/dL (7-17); Calcium 8.4 mg/dL (8.4-10.2); Carbon Dioxide 22 mmol/L (22-30); Chloride 106 mmol/L (98-107); Glucose 73 mg/dL (74-99); Magnesium 1.5 mg/dL (1.6-2.3); Non-African American GFR(CKD) >90 (>60 ml/min/1.73 sqM); Potassium 3.9 mmol/L (3.5-5.1); Sodium 132 mmol/L (137-145)
[2022-03-30] MEDS: IBUPROFEN 600 MG TAB PO SCH ×3 (16:54→22:56)
--- NOTE | 2022-03-30 16:58 | CT ---
EXAMINATION TYPE: CT brain wo con CT DLP: 1126 mGycm, Automated exposure control for dose reduction was used. DATE OF EXAM: 03/30/2022 4:46 PM COMPARISON: None. CLINICAL INDICATION:Female, 36 years old with history of syncope vs seizure, syncope/seizure TECHNIQUE: Brain: Axial CT images of the brain were obtained with coronal and sagittal reformats created and rev iewed. Contrast used: None. Oral contrast used: None. FINDINGS: Brain: Extra-axial spaces: No abnormal extra-axial fluid collections. Ventricular system: Within normal limits Cerebral parenchyma: No acute intraparenchymal hemorrhage or mass effect. The horvath-white junction is well differentiated. Cerebellum: Unremarkable. Mass effect: No evidence of midline shift. Intracranial vasculature: unremarkable Soft tissues: Normal. Calvarium/osseous structures: No depressed skull fracture. Paranasal sinuses and mastoid air cells: Mild scattered paranasal sinus disease. Visualized orbits: Orbital contents are intact. IMPRESSION: No acute intracranial process.
--- NOTE | 2022-03-30 18:40 | P.CNNES ---
History of Present Illness Consult date: 03/30/22 Requesting physician: Kristie Chase Reason for Consult: Seizure versus syncope History of Present Illness: Patient is a 36-year-old female, who just delivered vaginally a healthy baby earlier today, had 2 syncopal spells versus seizure. Patient's nursing staff, and were both present as well. Apparently before delivery of the baby, patient was feeling nauseous, she became hypotensive, and felt will throw up and then felt will pass out. She then became unresponsive for about 1 minute, was foaming from the mouth, with slight rigidity in the arms. She was unaware when she came to. Apparently it was felt to be related to her delivery. After the baby was born earlier today, patient had another syncopal spell, which lasted less than 1 minute before she was back to her baseline. She felt it coming on, felt nauseous like will vomit, and then passed out. She did not bite her tongue. Any loss of urine control could not be assessed because of recent delivery. Her blood pressure documented was between 68/40 to 75/45. Patient's mentions that patient had 2 other syncopal spells during pre gnancy. The first one occurred in September 2021 when she felt she was having a stomach flu, was having some fever, nausea, felt will throw up. She was running to the bathroom, and she fell, and chipped one of her tooth from the fall. Another time during , about 6 months ago, she woke up from choking, was laying in the bed, and noticed that she had vomited all over on her self. Patient has history of syncopal spells when she was very young, when she would see her own blood drawn. Patient denies any history of tobacco use, alcohol. Drinks one cup of coffee, denies any excessive soda. She was adopted, therefore no family history available. No personal history of seizures. Review of Systems All 14 points of uses reviewed, unremarkable except as mentioned in HPI. She has some related symptoms from recent childbirth. Patient denies any headache. No visual symptoms. Past Medical History Past Medical History: No Reported History Additional Past Medical History / Comment(s): so peraza 3 yrs ago History of Any Multi-Drug Resistant Organisms: None Reported Past Surgical History: Adenoidectomy, Tonsillectomy Past Anesthesia/Blood Transfusion Reactions: No Reported Reaction Past Psychological History: ADD/ADHD Smoking Status: Never smoker Past Alcohol Use History: None Reported Past Drug Use History: None Reported - Past Family History Mother Family Medical History: No Reported History Medications and Allergies Home Medications Medication Instructions Recorded Confirmed Type Pnv No.95/Ferrous Fum/Folic AC 1 tab PO DAILY 02/15/20 03/30/22 History [ Multivitamin Tablet] Aspirin EC [Ecotrin Low Dose] 81 mg PO DAILY 10/17/21 03/30/22 History Allergies Allergy/AdvReac Type Severity Reaction Status Date / Time No Known Allergies Allergy Verified 03/30/22 06:09 Physical Examination - Vital Signs Vital Signs: Vital Signs Temp Pulse Resp BP Pulse Ox 03/30/22 13:55 87 18 101/55 99 03/30/22 06:09 97 F L 82 18 113/67 97 Intake and Output 03/29/22 03/30/22 03/30/22 22:59 06:59 14:59 Output Total 100 Balance -100 Output: Estimated Blood Loss 100 Other: # Voids 1 Weight 88.451 kg Patient is a young female, very pleasant, in no acute distress. Patient is alert awake oriented to time place and person. Speech and language functions are normal. No aphasia or dysarthria. Attention, concentration and fund of knowledge is adequate. On cranial examination, pupils are round and reacting to light, visual kulkarni are full on confrontation, with no neglect on double simultaneous stimulation. Her extraocular muscles are intact with no nystagmus. Face is symmetric, tongue protrudes to the midline. Palatal elevation and sensation normal, hearing and shoulder shrug normal, facial sensation normal. Shoulder shrug normal. On muscle strength testing, there is no pronator drift and the strength is normal in arms and legs distally and proximally. Deep tendon reflexes are 1+ to 2+, symmetric and plantars downgoing bilaterally. Sensory to touch is equal with no neglect. Cerebellar function showed no ataxia for [id number]-ptbs testing. No dysdiadochokinesia. Tone and bulk of muscles normal. Gait deferred. On general examination, there is no carotid bruit or murmur, S1-S2 audible. Abdomen is soft nontender. No organomegaly, bowel sounds present. Chest is clear. Peripheral pulses are present. No edema. Results - Laboratory Findings CBC and BMP: 03/30/22 06:47 03/30/22 15:22 Assessment and Plan Assessment: * Probable convulsive syncope 2 (before delivery and then ). Patient's blood pressure was significantly low, which probably resulted in syncopal spells x2. However patient had 2 other syncopal spells during , which also felt syncopal. Seizures less likely. * History of syncopal or near syncopal spells as a child related to seeing her own blood draws. Plan: * Agree with checking 2-D echo, TSH. * We will check EEG to rule out any epileptiform activity. * CT head will be done to rule out any intracranial process. * Orthostatics once patient fully hydrated. If these syncopal spells persist, then may need tilt table test. * Neurology will follow. * Discussed with Dr. Chase in detail. Thank you for the consult.
[2022-03-30] MEDS: SENNOSIDES-DOCUSATE SODIUM 1 EACH TAB PO SCH (20:21)
[2022-03-31 06:43] LABS: Basophils % (A) 0 %; Eosinophils # (A) 0.1 k/uL (0-0.7); Eosinophils % (A) 1 %; HCT 33.2 % (34.0-46.0); HGB 11.1 gm/dL (11.4-16.0); Lymphocytes # (A) 1.5 k/uL (1.0-4.8); Lymphocytes % (A) 21 %; MCH 30.5 pg (25.0-35.0); MCHC 33.5 g/dL (31.0-37.0); MCV 91.1 fL (80.0-100.0); Mean Platelet Volume 8.2; Monocytes # (A) 0.3 k/uL (0-1.0); Monocytes % (A) 4 %; Neutrophils # (A) 5.1 k/uL (1.3-7.7); Neutrophils % (A) 72 %; Platelet Count 166 k/uL (150-450); RBC 3.65 m/uL (3.80-5.40); RDW 14.7 % (11.5-15.5); WBC 7.1 k/uL (3.8-10.6)
--- NOTE | 2022-03-31 07:29 | CA ---
Transthoracic Echo Report Name: Nicki Neumann Age: 36 Gender: F : 1985 Exam Date: 03/30/2022 15:21 Exam Location: [facility] Ht (in): 65 Wt (lb): 195 Ordering Physician: Kristie Odonnell DO Attending/Referring Phys: [id number], [employer] Clerk Naty Monroe RDCS Procedure CPT: Indications: Syncope Cardiac Hx: Technical Quality: Good Contrast 1: Total Dose (mL): Contrast 2: Total Dose (mL): MEASUREMENTS (Male / Female) Normal Values 2D ECHO LV Diastolic Diameter PLAX 4.6 cm 4.2 - 5.9 / 3.9 - 5.3 cm LV Systolic Diameter PLAX 2.9 cm IVS Diastolic Thickness 1.0 cm 0.6 - 1.0 / 0.6 - 0.9 cm LVPW Diastolic Thickness 1.1 cm 0.6 - 1.0 / 0.6 - 0.9 cm LV Relative Wall Thickness 0.5 RV Internal Dim ED PLAX 3.1 cm LA Systolic Diameter LX 3.1 cm 3.0 - 4.0 / 2.7 - 3.8 cm LA Volume 47.8 cm??? 18 - 58 / 22 - 52 cm??? M-MODE Aortic Root Diameter MM 2.5 cm MV E Point Septal Separation 0.6 cm AV Cusp Separation MM 1.9 cm DOPPLER AV Peak Velocity 156.9 cm/s AV Peak Gradient 9.8 mmHg MV Area PHT 3.0 cm??? Mitral E Point Velocity 95.5 cm/s Mitral A Point Velocity 71.3 cm/s Mitral E to A Ratio 1.3 MV Deceleration Time 249.4 ms MV E' Velocity 12.0 cm/s Mitral E to MV E' Ratio 8.0 TR Peak Velocity 240.5 cm/s TR Peak Gradient 23.1 mmHg Right Ventricular Systolic Press 27.7 mmHg FINDINGS Left Ventricle Left ventricular ejection fraction is estimated at 55-60 %. Left ventricular cavity size normal. Left ventricular wall thickness normal. Right Ventricle Normal right ventricular size and function. Right ventricular systolic pressure within normal limits. Right Atrium Normal right atrial size. Left Atrium Normal left atrial size. No evidence for an atrial septal defect. Mitral Valve Structurally normal mitral valve. No mitral stenosis, regurgitation or prolapse. Aortic Valve Trileaflet aortic valve. No aortic stenosis. Tricuspid Valve Mild tricuspid regurgitation. Pulmonic Valve Trace pulmonic regurgitation. Pericardium Normal pericardium. No pericardial effusion. Aorta Normal size aortic root and proximal ascending aorta. CONCLUSIONS Normal LV size and systolic function. No significant abnormality on the Doppler exam. No pericardial effusion Previewed by: Dr. Triston Nicholas MD (Electronically Signed) Final Date: 31 March 2022 07:28
[2022-03-31] MEDS: IBUPROFEN 600 MG TAB PO SCH ×3 (07:44→22:06)
[2022-03-31] MEDS: SENNOSIDES-DOCUSATE SODIUM 1 EACH TAB PO SCH ×2 (07:44→19:43)
--- NOTE | 2022-03-31 12:34 | P.PNOBGVD ---
Subjective - Subjective Principal diagnosis: day #1 Interval history: Patient is doing well . No further syncopal episodes were appreciated. Appreciate neurology and internal medicine consult on chart. Patient states her lochia is moderate. She is feeling well today. Patient reports: Reports appetite normal, Reports voiding normally, Reports pain well controlled, Reports ambulating normally [place]: doing well Objective - Latest Vital Signs Latest vital signs: Vital Signs Temp Pulse Pulse Resp BP Pulse Ox 03/31/22 07:54 98.7 F 77 16 128/82 99 03/31/22 00:00 98.5 F 76 16 94/55 03/30/22 20:02 71 16 105/63 03/30/22 20:01 89 16 103/65 03/30/22 20:00 98.3 F 89 16 103/65 03/30/22 18:48 91 18 114/71 03/30/22 17:54 105 H 18 113/54 03/30/22 16:00 98 F 65 18 111/66 99 03/30/22 15:55 98 F 70 18 113/63 98 03/30/22 15:25 81 18 110/61 100 03/30/22 14:55 76 18 101/62 100 03/30/22 14:40 98 F 71 18 98/54 100 03/30/22 14:25 74 18 103/57 100 03/30/22 14:10 72 18 96/59 100 03/30/22 13:55 87 18 101/55 99 Intake and Output 03/30/22 03/31/22 03/31/22 22:59 06:59 14:59 Output Total 189 Balance -189 Output: Output, Quantitative 189 Blood Loss Other: # Voids 1 1 - Exam Extremities: Present: normal, edema Abdomen: Present: normal appearance, soft Uterus: Present: normal, firm - Labs Labs: Abnormal Lab Results - Last 24 Hours (Table) 03/30/22 03/31/22 Range/Units 15:22 06:14 RBC 3.65 L (3.80-5.40) m/uL Hgb 11.1 L (11.4-16.0) gm/dL Hct 33.2 L (34.0-46.0) % Sodium 132 L (137-145) mmol/L Creatinine 0.46 L (0.52-1.04) mg/dL Glucose 73 L (74-99) mg/dL Magnesium 1.5 L (1.6-2.3) mg/dL Assessment and Plan (1) Rh negative status during Current Visit: Yes Status: Acute Code(s): O26.899 - OTH RELATED CONDITIONS, UNSPECIFIED TRIMESTER; Z67.91 - UNSPECIFIED BLOOD TYPE, RH NEGATIVE SNOMED Code(s): 720489612 (2) Term Current Visit: No Status: Acute Code(s): Z34.90 - ENCNTR FOR SUPRVSN OF NORMAL , UNSP, UNSP TRIMESTER SNOMED Code(s): 82166991 (3) Syncopal episodes Current Visit: Yes Status: Acute Code(s): R55 - SYNCOPE AND COLLAPSE SNOMED Code(s): 159052871 (4) Status post vaginal delivery Current Visit: No Status: Acute Code(s): YOM2087 - SNOMED Code(s): 897106865 Plan: 36-year-old G2 now P2 status post normal spontaneous vaginal delivery. Patient is doing well . Appreciate internal medicine and neurology consult. We'll observe today and anticipate discharge home tomorrow.
--- NOTE | 2022-03-31 13:52 | EEG ---
ELECTROENCEPHALOGRAM REPORT DATE OF SERVICE: 03/31/2022 PREAMBLE: This is a 36-year-old female who had recurrent syncope versus seizures. This study is performed to evaluate for any epileptiform activity. EEG FINDINGS: This is a 21 channel digital EEG recorded with video component, utilizing 10/20 international system with referential and bipolar montages. Background consists of moderately well-developed and regulated, predominantly low amplitude 11-12 hertz alpha, intermixed with low amplitude, suppressed background activity. Background seems to be minimally reactive to eye opening and closing. Photic driving response was not seen. Different stages of sleep were not seen. No focal or generalized epileptiform activity was seen. EKG channel showed no obvious arrhythmia. IMPRESSION: This is a normal awake EEG. No focal, lateralized or epileptiform activity was seen. Overall mildly suppressed background activity is of uncertain etiology, may be related to medication effect. No epileptiform activity was seen. MMODL / IJN: [id number] /
--- NOTE | 2022-03-31 14:32 | P.PN ---
Subjective Progress Note Date: 03/31/22 Patient denies any further presyncope or syncopal episode. Patient has no acute complaints. She is looking forward to going home. Objective - Vital Signs Vital signs: Vital Signs Temp 98.7 F 03/31/22 07:54 Pulse 77 03/31/22 07:54 Resp 16 03/31/22 07:54 BP 128/82 03/31/22 07:54 Pulse Ox 99 03/31/22 07:54 FiO2 Intake & Output 03/30/22 03/31/22 03/31/22 18:59 06:59 18:59 Intake Total 480.467 Output Total 289 Balance 191.467 Intake: Intake, IV Titration 180.467 Amount Oxytocin 30 Units/500 ml 180.467 Ns 30 unit In Saline 1 500ml.bag @ Per Protocol IV .Q0M MANJU Rx#:[id number] Oral 300 Output: Estimated Blood Loss 100 Output, Quantitative 189 Blood Loss Other: # Voids 1 1 - Exam General examination - Alert and Oriented 3 in NAD Heart - + S1S2 no murmurs Lungs - Clear to auscultation Abdomen distended +ve BS Extremities - No edema SAW GRINDER - Moving all 4 extremities spontaneously Psych - Calm and cooperative - Labs CBC & Chem 7: 03/31/22 06:14 03/30/22 15:22 Labs: Abnormal Lab Results - Last 24 Hours (Table) 03/30/22 03/31/22 Range/Units 15:22 06:14 RBC 3.65 L (3.80-5.40) m/uL Hgb 11.1 L (11.4-16.0) gm/dL Hct 33.2 L (34.0-46.0) % Sodium 132 L (137-145) mmol/L Creatinine 0.46 L (0.52-1.04) mg/dL Glucose 73 L (74-99) mg/dL Magnesium 1.5 L (1.6-2.3) mg/dL Assessment and Plan Assessment: Unresponsive episode -Syncope versus less likely seizure -Likely etiology is hypertension -Blood pressure now stable. Orthostatics are negative -Echocardiogram shows normal EF -CT head negative -EEG negative for epileptiform activity -Patient should not drive for 6 months. This is [place] state law. Relative hypotension - Resolved Vaginal Delivery - being managed by HEADING REPAIRER Patient stable for discharge from a medical standpoint. Please wait for neuro logy recommendations regarding discharge plans.
--- NOTE | 2022-04-01 07:41 | P.PN ---
Subjective Progress Note Date: 03/31/22 Patient was seen for follow-up. Patient is feeling fine. Denies any headache any numbness tingling. No further syncopal spells. According to the nursing report, patient had orthostatics checked, which were normal. Patient's was also present today. Objective - Vital Signs Vital signs: Vital Signs Temp 98.7 F 03/31/22 07:54 Pulse 77 03/31/22 07:54 Resp 16 03/31/22 07:54 BP 128/82 03/31/22 07:54 Pulse Ox 99 03/31/22 07:54 FiO2 Intake & Output 03/30/22 03/31/22 03/31/22 18:59 06:59 18:59 Intake Total 480.467 Output Total 289 Balance 191.467 Intake: Intake, IV Titration 180.467 Amount Oxytocin 30 Units/500 ml 180.467 Ns 30 unit In Saline 1 500ml.bag @ Per Protocol IV .Q0M MANJU Rx#:[id number] Oral 300 Output: Estimated Blood Loss 100 Output, Quantitative 189 Blood Loss Other: # Voids 1 1 - Exam Patient's mental status, speech and language functions are normal. - Labs CBC & Chem 7: 03/31/22 06:14 03/30/22 15:22 Labs: Abnormal Lab Results - Last 24 Hours (Table) 03/30/22 03/31/22 Range/Units 15:22 06:14 RBC 3.65 L (3.80-5.40) m/uL Hgb 11.1 L (11.4-16.0) gm/dL Hct 33.2 L (34.0-46.0) % Sodium 132 L (137-145) mmol/L Creatinine 0.46 L (0.52-1.04) mg/dL Glucose 73 L (74-99) mg/dL Magnesium 1.5 L (1.6-2.3) mg/dL Assessment and Plan Assessment: * Probable convulsive syncope 2 (before delivery and then ). Patient's blood pressure was significantly low, which probably resulted in syncopal spells x2. However patient had 2 other syncopal spells during , which also felt syncopal. Seizures less likely. * History of syncopal or near syncopal spells as a child related to seeing her own blood draws. Plan: * 2-D echo revealed normal left ventricular size and systolic function. No significant abnormality on the Doppler exam. Left atrial size is normal. No evidence of an ASD. EF is 55-60%. Normal left ventricular wall thickness. * TSH normal 0.612. Magnesium slightly low 1.5. * EEG was normal awake. No focal, lateralized or epileptiform activity was seen. Overall, mildly suppressed background activity is of uncertain etiology, may be related to medication effect. * CT head showed no acute process. I personally reviewed CT, agree with the findings. * Orthostatics were checked, which according to the nursing report was negative. * Neurologically clear for discharge. If these syncopal spells persist as outpatient, then may consider tilt table test. * Recommended patient to avoid driving, or climbing ladders, until cleared by patient's primary physician as an outpatient. * Discussed with patient's nurse and informed above recommendations.
[2022-04-01] MEDS: SENNOSIDES-DOCUSATE SODIUM 1 EACH TAB PO SCH (08:15)
[2022-04-01] MEDS: IBUPROFEN 600 MG TAB PO SCH (08:16)
[2022-04-01 08:29] VITALS: BP 111/73; PULSE 72; RESP 16; TEMP 97.8
--- NOTE | 2022-04-01 08:51 | P.DS ---
Providers Date of admission: 03/30/22 06:03 Expected date of discharge: 04/01/22 Attending physician: Laurence Mackey Consults: 03/30/22 14:39 Consult Physician Urgent Consulting Provider: Shahida Maurer Consult Reason/Comments: seizure vs syncope Do you want consulting provider notified?: Yes 03/30/22 14:41 Consult Physician Routine Consulting Provider: Kristie Chase Consult Reason/Comments: seizure Do you want consulting provider notified?: Already Contacted Primary care physician: Stated None - Discharge Diagnosis(es) (1) Rh negative status during Current Visit: Yes Status: Acute (2) Term Current Visit: No Status: Acute (3) Syncopal episodes Current Visit: Yes Status: Acute (4) Status post vaginal delivery Current Visit: No Status: Acute Hospital Course: This is a 36-year-old 2 now para 2 that presents to labor and delivery on 03/30 for scheduled induction of labor. Patient has had an essentially uncomplicated with the exception of significant nausea and vomiting the first trimester. She did have 2 episodes of syncope during the , 1 where she hit her upper lip and had loss of 2 from T while rushing to the toilet vomiting. Patient in addition had a COVID-19 infection during this . For full details on this patient please see the dictated history and physical. Patient was admitted to labor and delivery and Pitocin induction of labor was begun. Patient underwent amniotomy and clear fluid was obtained. Patient progressed through labor eventually come in and uncomfortable and requesting epidural placement. Epidural was placed without difficulty. Anesthesia department. Patient was noted to be 7 cm when a syncopal episode was appreciated. No mental fogginess was appreciated. Patient quickly progressed to complete was able to push and had a normal spontaneous vaginal delivery of a viable female at 1339, weight of 6 lbs. 14 oz. patient did sustain a first degree vaginal laceration during delivery which was repaired in the usual fashion with 3-0 Rapide. While patient was in recovery and additional small short syncopal episode was appreciated with hypotension. The A team was called and she was evaluated by Dr Chase. Neurology was counseled. Appreciated consults. Please see internal medicine/neurology consult for full details. On this day #2 she is feeling well, no further syncopal episodes are appreciated. Patient states she would like discharge home. Will await internal medicine and neurology input from today for further recommendations on discharge. Plan - Discharge Summary New Discharge Prescriptions: No Action Pnv No.95/Ferrous Fum/Folic AC [ Multivitamin Tablet] 1 tab PO DAILY Aspirin EC [Ecotrin Low Dose] 81 mg PO DAILY Discharge Medication List Pnv No.95/Ferrous Fum/Folic AC [ Multivitamin Tablet] 1 tab PO DAILY 02/15/20 [History] Aspirin EC [Ecotrin Low Dose] 81 mg PO DAILY 10/17/21 [History] Follow up Appointment(s)/Referral(s): Laurence Mackey DO [Doctor of Osteopathic Medicine] - 4 Weeks Patient Instructions/Handouts: Vaginal Delivery (DC), Vaginal Delivery (GEN) Discharge Disposition: HOME SELF-CARE
== END 2022-04-01 10:50 | disposition home or self-care (01) | DRG 806 ==
LOC: 4FBP 06:03
PROVIDERS: ADMIT Obstetrics & Gynecology Obstetrics; ATTEND Obstetrics & Gynecology Obstetrics
PROC: 10E0XZZ Delivery of Products of Conception, External Approach (ICD-10-PCS; principal; 2022-03-30)
PROC: 0HQ9XZZ Repair Perineum Skin, External Approach (ICD-10-PCS; 2022-03-30)
PROC: 3E033VJ Introduction of Other Hormone into Peripheral Vein, Percutaneous Approach (ICD-10-PCS; 2022-03-30)
PROC: 10907ZC Drainage of Amniotic Fluid, Therapeutic from Products of Conception, Via Natural or Artificial Opening (ICD-10-PCS; 2022-03-30)
DX: O16.4 Unspecified maternal hypertension, complicating childbirth (principal); O99.354 Diseases of the nervous system complicating childbirth; Z37.0 Single live birth; G51.0 Bell's palsy; O70.0 First degree perineal laceration during delivery; I37.1 Nonrheumatic pulmonary valve insufficiency; I07.1 Rheumatic tricuspid insufficiency; R55 Syncope and collapse; Z86.16 Personal history of COVID-19; R56.9 Unspecified convulsions; O21.9 Vomiting of pregnancy, unspecified; O26.893 Other specified pregnancy related conditions, third trimester; O99.344 Other mental disorders complicating childbirth; F90.9 Attention-deficit hyperactivity disorder, unspecified type; Z3A.39 39 weeks gestation of pregnancy; Z67.91 Unspecified blood type, Rh negative; Z79.82 Long term (current) use of aspirin
CPT/HCPCS: 70450; 80048; 83735; 84443; 85025; 86850; 86900; 86901; 88307; 93005; 93306; 95816

== ENCOUNTER 2022-08-11 08:42 | Emergency (ER) | payer BC ==
[2022-08-11 08:49] VITALS: TEMP 98
[2022-08-11] MEDS ORDERED: SODIUM CHLORIDE 0.9% 1,000 ML IV ONE (08:58)
[2022-08-11] MEDS ORDERED: ONDANSETRON 4 MG/2 ML VIAL IVP STA (08:59)
[2022-08-11] MEDS ORDERED: KETOROLAC 15 MG/ML 1 ML VIAL IVP STA (08:59)
--- NOTE | 2022-08-11 09:08 | ED ---
General Adult HPI - General Chief complaint: Abdominal Pain Stated complaint: Abd Pain Time Seen by Provider: 08/11/22 08:51 Source: patient Mode of arrival: wheelchair Limitations: no limitations - History of Present Illness Initial comments: 36-year-old female coming in for pelvic pain that started approximately 7:30 this morning. Patient states that she woke up with intense, diffuse abdominal pain that radiates across the front of her abdomen. She describes the pain as sharp that comes and goes. Nothing makes it better, she has tried Tylenol with no relief. She admits to an accompanying symptom of nausea and diarrhea this morning but denies vomiting. She's never had this before. She notes she has recently been treated for an upper respiratory infection with amoxicillin. Denies history of ovarian torsion, appendectomy, cholecystectomy. Denies fever chills, palpitations shortness of breath, vaginal discharge, or vaginal bleeding, flank pain, dysuria, or hematuria. - Related Data Home Medications Medication Instructions Recorded Confirmed Pnv No.95/Ferrous Fum/Folic AC 1 tab PO DAILY 02/15/20 03/30/22 [ Multivitamin Tablet] Aspirin EC [Ecotrin Low Dose] 81 mg PO DAILY 10/17/21 03/30/22 Allergies Allergy/AdvReac Type Severity Reaction Status Date / Time No Known Allergies Allergy Verified 08/11/22 10:47 Review of Systems ROS Statement: Those systems with pertinent positive or pertinent negative responses have been documented in the HPI. ROS Other: All systems not noted in ROS Statement are negative. Past Medical History Past Medical History: No Reported History Additional Past Medical History / Comment(s): so [facility] 3 yrs ago History of Any Multi-Drug Resistant Organisms: None Reported Past Surgical History: Adenoidectomy, Tonsillectomy Past Anesthesia/Blood Transfusion Reactions: No Reported Reaction Past Psychological History: ADD/ADHD Smoking Status: Never smoker Past Alcohol Use History: None Reported Past Drug Use History: None Reported - Past Family History Mother History Unknown: Yes Family Medical History: No Reported History Additional Family Medical History / Comment(s): adopted, thinks there may be a hx of heart disease General Exam Limitations: no limitations General appearance: anxious Head exam: Present: atraumatic, normocephalic, normal inspection Eye exam: Present: normal appearance, PERRL, EOMI. Absent: scleral icterus, conjunctival injection, periorbital swelling ENT exam: Present: normal exam, mucous membranes moist Neck exam: Present: normal inspection. Absent: tenderness, meningismus, lymphadenopathy Respiratory exam: Present: normal lung sounds bilaterally. Absent: respiratory distress, wheezes, rales, rhonchi, stridor Cardiovascular Exam: Present: regular rate, normal rhythm, normal heart sounds. Absent: systolic murmur, diastolic murmur, rubs, gallop, clicks GI/Abdominal exam: Present: soft, tenderness (generalized ), normal bowel sounds. Absent: distended, guarding, rebound, rigid Neurological exam: Present: alert, oriented X3, CN II-XII intact Psychiatric exam: Present: normal affect, normal mood Skin exam: Present: warm, dry, intact, normal color. Absent: rash, diaphoretic Course Vital Signs 08/11/22 08/11/22 08:42 10:10 Temperature 98 F Pulse Rate 65 76 Respiratory 16 18 Rate Blood Pressure 91/54 97/67 O2 Sat by Pulse 99 100 Oximetry - Reevaluation(s) Reevaluation #1: 08/11/22 10:14 pt re-evaluted. Pt appears less anxious, NAD. Notifed awaiting imaging results. Medical Decision Making - Medical Decision Making 6-year-old female coming in for abdominal pain and nausea. She was seen and evaluated in the ED had lab work done which was unremarkable. I interpreted the following imaging; vaginal ultrasound negative for evidence of torsion. Patient was on fluids and Toradol and Zofran with symptomatic relief and the ED. I discussed in detail her results all questions and concerns addressed. Case discussed with Dr. Soriano. - Lab Data Result diagrams: 08/11/22 09:28 08/11/22 09:28 Lab Results 08/11/22 08/11/22 08/11/22 Range/Units 09:28 09:28 09:28 WBC 8.0 (3.8-10.6) k/uL RBC 4.73 (3.80-5.40) m/uL Hgb 14.0 (11.4-16.0) gm/dL Hct 41.3 (34.0-46.0) % MCV 87.2 (80.0-100.0) fL MCH 29.6 (25.0-35.0) pg MCHC 34.0 (31.0-37.0) g/dL RDW 13.1 (11.5-15.5) % Plt Count 251 (150-450) k/uL MPV 8.1 Neutrophils % 72 % Lymphocytes % 22 % Monocytes % 4 % Eosinophils % 1 % Basophils % 0 % Neutrophils # 5.8 (1.3-7.7) k/uL Lymphocytes # 1.8 (1.0-4.8) k/uL Monocytes # 0.3 (0-1.0) k/uL Eosinophils # 0.1 (0-0.7) k/uL Basophils # 0.0 (0-0.2) k/uL Sodium 140 (137-145) mmol/L Potassium 4.1 (3.5-5.1) mmol/L Chloride 105 (98-107) mmol/L Carbon Dioxide 25 (22-30) mmol/L Anion Gap 10 mmol/L BUN 13 (7-17) mg/dL Creatinine 0.68 (0.52-1.04) mg/dL Est GFR (CKD-EPI)AfAm >90 (>60 ml/min/1.73 sqM) Est GFR (CKD-EPI)NonAf >90 (>60 ml/min/1.73 sqM) Glucose 90 (74-99) mg/dL Plasma Lactic Acid [place] (0.7-2.0) mmol/L Calcium 9.1 (8.4-10.2) mg/dL Total Bilirubin 0.4 (0.2-1.3) mg/dL AST 32 (14-36) U/L ALT 31 (4-34) U/L Alkaline Phosphatase 77 (38-126) U/L Total Protein 7.3 (6.3-8.2) g/dL Albumin 4.4 (3.5-5.0) g/dL Lipase 82 (23-300) U/L Urine Color Light Yellow Urine Appearance Clear (Clear) Urine pH 8.0 (5.0-8.0) Ur Specific [place] 1.016 (1.001-1.035) Urine Protein Negative (Negative) Urine Glucose (UA) Negative (Negative) Urine Ketones Negative (Negative) Urine Blood Negative (Negative) Urine Nitrite Negative (Negative) Urine Bilirubin Negative (Negative) Urine Urobilinogen <2.0 (<2.0) mg/dL Ur Leukocyte Esterase Negative (Negative) Coronavirus (PCR) (Not Detectd) 08/11/22 08/11/22 Range/Units 09:28 09:34 WBC (3.8-10.6) k/uL RBC (3.80-5.40) m/uL Hgb (11.4-16.0) gm/dL Hct (34.0-46.0) % MCV (80.0-100.0) fL MCH (25.0-35.0) pg MCHC (31.0-37.0) g/dL RDW (11.5-15.5) % Plt Count (150-450) k/uL MPV Neutrophils % % Lymphocytes % % Monocytes % % Eosinophils % % Basophils % % Neutrophils # (1.3-7.7) k/uL Lymphocytes # (1.0-4.8) k/uL Monocytes # (0-1.0) k/uL Eosinophils # (0-0.7) k/uL Basophils # (0-0.2) k/uL Sodium (137-145) mmol/L Potassium (3.5-5.1) mmol/L Chloride (98-107) mmol/L Carbon Dioxide (22-30) mmol/L Anion Gap mmol/L BUN (7-17) mg/dL Creatinine (0.52-1.04) mg/dL Est GFR (CKD-EPI)AfAm (>60 ml/min/1.73 sqM) Est GFR (CKD-EPI)NonAf (>60 ml/min/1.73 sqM) Glucose (74-99) mg/dL Plasma Lactic Acid [place] 1.5 (0.7-2.0) mmol/L Calcium (8.4-10.2) mg/dL Total Bilirubin (0.2-1.3) mg/dL AST (14-36) U/L ALT (4-34) U/L Alkaline Phosphatase (38-126) U/L Total Protein (6.3-8.2) g/dL Albumin (3.5-5.0) g/dL Lipase (23-300) U/L Urine Color Urine Appearance (Clear) Urine pH (5.0-8.0) Ur Specific [place] (1.001-1.035) Urine Protein (Negative) Urine Glucose (UA) (Negative) Urine Ketones (Negative) Urine Blood (Negative) Urine Nitrite (Negative) Urine Bilirubin (Negative) Urine Urobilinogen (<2.0) mg/dL Ur Leukocyte Esterase (Negative) Coronavirus (PCR) Not Detected (Not Detectd) Disposition Clinical Impression: Abdominal pain Disposition: HOME SELF-CARE Condition: Stable Instructions (If sedation given, give patient instructions): Abdominal Pain (ED) Additional Instructions: Please return to the ED if symptoms worsen or persist. Is patient prescribed a controlled substance at d/c from ED?: No Referrals: Ajit Euceda MD [Primary Care Provider] - 1-2 days Time of Disposition: 10:48
[2022-08-11 09:36] LABS: Basophils % (A) 0 %; Eosinophils # (A) 0.1 k/uL (0-0.7); Eosinophils % (A) 1 %; HCT 41.3 % (34.0-46.0); Lymphocytes # (A) 1.8 k/uL (1.0-4.8); Lymphocytes % (A) 22 %; MCH 29.6 pg (25.0-35.0); MCV 87.2 fL (80.0-100.0); Mean Platelet Volume 8.1; Monocytes # (A) 0.3 k/uL (0-1.0); Monocytes % (A) 4 %; Neutrophils # (A) 5.8 k/uL (1.3-7.7); Neutrophils % (A) 72 %; Platelet Count 251 k/uL (150-450); RBC 4.73 m/uL (3.80-5.40); RDW 13.1 % (11.5-15.5)
[2022-08-11 09:55] LABS: Appearance,Urine Clear (Clear); Bilirubin,Urine Negative (Negative); Blood,Urine Negative (Negative); Color,Urine Light Yellow; Glucose,Urine (UA) Negative (Negative); Ketones,Urine Negative (Negative); Leukocyte Esterase,Urine Negative (Negative); Nitrite,Urine Negative (Negative); Protein,Urine Negative (Negative); Specific Gravity,Urine 1.016 (1.001-1.035); Urobilinogen,Urine <2.0 mg/dL (<2.0)
[2022-08-11 10:08] LABS: ALT 31 U/L (4-34); AST 32 U/L (14-36); African American GFR (CKD) >90 (>60 ml/min/1.73 sqM); Albumin 4.4 g/dL (3.5-5.0); Alkaline Phosphatase 77 U/L (38-126); Anion Gap 10 mmol/L; Blood Urea Nitrogen 13 mg/dL (7-17); Calcium 9.1 mg/dL (8.4-10.2); Carbon Dioxide 25 mmol/L (22-30); Chloride 105 mmol/L (98-107); Glucose 90 mg/dL (74-99); Lipase 82 U/L (23-300); Non-African American GFR(CKD) >90 (>60 ml/min/1.73 sqM); Potassium 4.1 mmol/L (3.5-5.1); Sodium 140 mmol/L (137-145); Total Bilirubin 0.4 mg/dL (0.2-1.3); Total Protein 7.3 g/dL (6.3-8.2)
[2022-08-11 10:11] VITALS: RESP 18
[2022-08-11 10:23] LABS: HCG,Quantitative Serum <2.4 mIU/mL
--- NOTE | 2022-08-11 10:29 | US ---
EXAMINATION TYPE: US transvaginal plus Dopplers DATE OF EXAM: 08/11/2022 COMPARISON: NONE CLINICAL HISTORY: 36-year-old female Pelvic pain TECHNIQUE: Transvaginal (TV). Color Doppler and spectral waveform analysis of the ovarian arteries and veins. Date of LMP: unknown, patient delivered baby 4 months ago FINDINGS: EXAM MEASUREMENTS: Uterus: 5.8 x 3.1 x 4.9 cm Endometrial Stripe: 0.2 cm Right Ovary: 3.4 x 1.4 x 1.8 cm for a volume of 4.4 mL Left Ovary: unable to visualize 1. Uterus: Anteverted and otherwise wnl 2. Endometrium: wnl 3. Right Ovary: multiple follicles 4. Left Ovary: Obscured by overlying bowel gas Spectral, color and waveform doppler imaging shows good arterial and venous flow within the right o vary; there is no evidence for ovarian torsion. 5. Bilateral Adnexa: large amount of peristalsing bowel left adnexa 6. Posterior cul-de-sac: Mild cul-de-sac free fluid noted IMPRESSION: 1. Follicular changes in the right ovary. No sonographic evidence for ovarian torsion on the right. U nable to visualize the left ovary. 2. Normal sonographic appearance to the uterus. 3. Mild cul-de-sac free fluid likely physiologic.
[2022-08-11] MEDS ORDERED: ONDANSETRON 4 MG ODT STARTER PACK 2 TAB BTL PO STA (10:44)
[2022-08-11 11:45] VITALS: BP 107/70; PULSE 82
--- NOTE | 2022-08-11 11:51 | CT ---
EXAMINATION TYPE: CT abdomen pelvis w con DATE OF EXAM: 08/11/2022 COMPARISON: Correlation pelvic ultrasound same day HISTORY: 36-year-old female Abdominal pain. Delivered baby 4 months ago. TECHNIQUE: Contiguous axial scanning of the abdomen and pelvis following administration of 100 ml Iso cait 300 IV contrast. Delayed images through the kidneys and coronal/sagittal reconstructions perform ed. CT DLP: 849.9 mGycm Automated exposure control for dose reduction was used. FINDINGS: LUNG BASES: No significant abnormality is appreciated. LIVER/GB: There are some focal fat along the anterior falciform ligament. No biliary ductal dilatatio n. Portal venous system is patent. Otherwise, unremarkable liver and gallbladder. PANCREAS: No significant abnormality is seen. SPLEEN: No significant abnormality is seen. ADRENALS: No significant abnormality is seen. KIDNEYS: No significant abnormality is seen. BOWEL: Scattered mild stool. No pericolonic inflammatory change. Normal appendix. Fluid-filled small bowel loops throughout the abdomen and pelvis. There may be some mucosal hyperemia and wall thickenin g at the collapsed terminal ileum as well, refer to coronal image 49. LYMPH NODES: No significant abnormality is seen. PELVIS: Uterus anteverted. Bladder urine distended. Mild to moderate pelvic free fluid follicular rachael nge in both ovaries. No pelvic lymphadenopathy seen. BONES: No significant abnormality is seen. IMPRESSION: 1. PROMINENT FLUID-FILLED SMALL BOWEL LOOPS THROUGHOUT THE ABDOMEN AND PELVIS. THERE MAY BE MUCOSAL H YPEREMIA AND WALL THICKENING AT THE COLLAPSED TERMINAL ILEUM WELL. Consider a nonspecific infectio us or inflammatory enteritis. GI follow-up if any possibility of IBD. 2. Mild/moderate cul-de-sac free fluid may be physiologic or could be reactive to the enteritis.
== END 2022-08-11 12:08 | disposition home or self-care (01) ==
LOC: EC 08:42
DX: R10.2 Pelvic and perineal pain (principal); Z20.822 Contact with and (suspected) exposure to COVID-19
CPT/HCPCS: 99285; 96374; 96375; 96361; 36415; 80053; 83605; 83690; 85025; 81003; 84702; 87635; 93976; 76830; 74177; J2405; J1885; S0119; Q9967; 99284